=== PATIENT | male | born 2000 | race African-American/Black ===

== ENCOUNTER 2023-04-11 14:49 | Emergency (ER) | payer OTHER, SELFPAY ==
[2023-04-11 15:01] VITALS: BP 128/75; PULSE 77; RESP 18; TEMP 36.8; O2SAT 100; BMI 22.4
--- NOTE | 2023-04-11 15:06 | DI.RAD.S_ITS ---
PROCEDURE: XR HAND RT MIN 3V INDICATIONS: injury TECHNIQUE: 3 views of the hand(s) acquired. COMPARISON: None. FINDINGS: Bones: Transversely oriented fracture of the distal aspect of the proximal phalanx of the 3rd digit.. Carpal bones are normally aligned. No suspicious bony lesions. Soft tissues: No suspicious soft tissue calcifications. IMPRESSION: 3rd digit fracture. Dictated by: Kate Soria M.D. on 04/11/2023 at 15:45 Approved by: Kate Soria M.D. on 04/11/2023 at 15:46
--- NOTE | 2023-04-11 15:12 | ED_ITS ---
HPI - Extremity Injury (Upper) <Earnest Berger PA-C - Last Filed: 04/11/23 17:21> General Chief Complaint: Extremity Injury, Upper Stated Complaint: upper extremity injury Time Seen by Provider: 04/11/23 15:12 History of Present Illness HPI narrative: 22-year-old male with no reported past medical history presents to the ED status post a finger injury sustained just prior to arrival. Patient states that a 75- 100 lb heavy object fell on his right middle finger at work. Patient endorses full range of motion. Patient endorses mild pain. Patient endorses strength and sensation. Tetanus is up-to-date. Related Data Previous Rx's Medication Instructions Recorded cephalexin 500 mg capsule 500 mg PO QID 5 days #20 caps 04/11/23 Allergies Allergy/AdvReac Type Severity Reaction Status Date / Time No Known Drug Allergies Allergy Verified 04/11/23 16:04 Review of Systems <Earnest Berger PA-C - Last Filed: 04/11/23 17:21> Constitutional Constitutional: Denies chills, Denies fatigue, Denies fever(s), Denies frequent falls, Denies lethargy and Denies weakness Eyes Eyes: Denies change in vision, Denies eye discharge, Denies irritation and Denies loss of vision ENT Ears, Nose, Mouth, and Throat: Denies change in voice, Denies dizziness, Denies neck pain, Denies sore throat and Denies throat swelling Cardiovascular Cardiovascular: Denies chest pain, Denies irregular heart rhythm, Denies lightheadedness, Denies palpitations, Denies dyspnea, Denies dyspnea on exertion and Denies orthopnea Respiratory Respiratory: Denies cough, Denies dyspnea, Denies dyspnea on exertion and Denies wheezing Gastrointestinal Gastrointestinal: Denies abdominal pain, Denies change in bowel habits, Denies diarrhea, Denies nausea and Denies vomiting Musculoskeletal Musculoskeletal: Denies neck pain and Denies numbness Integumentary/Breasts Skin/Breast: Denies pruritus, Denies erythema, Denies rash and Reports wounds Neurologic Neurologic: Denies behavioral changes, Denies confusion, Denies dizziness, Denies frequent falls, Denies loss of vision, Denies numbness and Denies weakness Psychiatric Psychiatric: Denies anxiety, Denies behavioral changes, Denies confusion, Denies depression, Denies homicidal ideation and Denies suicidal ideation Endocrine Endocrine: Denies fatigue, Denies flushing and Denies palpitations Hematologic/Lymphatic Hematologic/Lymphatic: Denies easy bruising Allergic/Immunologic Allergic/Immunologic: Denies urticaria, Denies throat swelling and Denies wheezing Patient History <Earnest Berger PA-C - Last Filed: 04/11/23 17:21> Social History Smoking Status: Former smoker Smoking Status: Former smoker alcohol intake frequency: other Substance Use Type: does not use Exam <Earnest Berger PA-C - Last Filed: 04/11/23 17:21> Narrative Exam Narrative: Const General:?cooperative, healthy appearing and comfortable HENMT Head:?normal to inspection Ears:?hearing grossly normal bilaterally Nose:?external nose normal Face and sinus:?normal facial exam and sinuses nontender Mouth:?oral mucosae normal Throat:?posterior oropharynx normal Eyes General:?appearance normal, both eyes and all related structures Neck Neck:?normal visual inspection and no lymphadenopathy noted Resp Effort & Inspection:?normal respiratory effort Auscultation:?clear to auscultation bilaterally Cardio Rate:?regular rate Rhythm:?regular rhythm Musculoskeletal/Integumentary Small laceration on dorsal aspect of the proximal phalange of the right middle finger. Mild swelling. Bleeding controlled with pressure. Strength and sensation is intact. There is full range of motion. Patient is neurovascularly intact. Neuro General:?patient alert, patient awake and patient oriented x3 Initial Vital Signs Initial Vital Signs: Vital Signs Temperature 98.2 F 04/11/23 15:01 Pulse Rate 77 04/11/23 15:01 Respiratory Rate 18 04/11/23 15:01 Blood Pressure 128/75 04/11/23 15:01 Pulse Oximetry 100 04/11/23 15:01 Oxygen Delivery Method Room Air 04/11/23 15:01 <Nuha Sarabia MD - Last Filed: 04/11/23 18:05> Initial Vital Signs Initial Vital Signs: Vital Signs Temperature 98.2 F 04/11/23 15:01 Pulse Rate 77 04/11/23 15:01 Respiratory Rate 18 04/11/23 15:01 Blood Pressure 128/75 04/11/23 15:01 Pulse Oximetry 100 04/11/23 15:01 Oxygen Delivery Method Room Air 04/11/23 15:01 Procedures <Earnest Berger PA-C - Last Filed: 04/11/23 17:21> Laceration Repair Laceration 1: Site: hand Side (If applicable): right Size (cm): 0.5 Description: linear Local Anesthetic: other anesthetic (None) Pre-repair: wound explored, irrigated extensively, deep structures intact and cleansed with chlorhexadine Skin layer closed with: steri-strips ( and dermabond) Course <Earnest Berger PA-C - Last Filed: 04/11/23 17:21> Orders Ordered: ED Orders 04/11/23 15:06 XR hand RT min 3V Stat Discontinued Medications Cephalexin HCl (Cephalexin 250 Mg Capsule) 500 mg PO NOW ONE Stop: 04/11/23 16:40 Last Admin: 04/11/23 17:02 Dose: 500 mg Documented By: SPF Ibuprofen (Ibuprofen 400 Mg Tablet) 800 mg PO NOW ONE Stop: 04/11/23 15:47 Last Admin: 04/11/23 16:03 Dose: 800 mg Documented By: SPF Vital Signs Vital signs: Vital Signs - 8 hr 04/11/23 15:01 04/11/23 16:45 Temperature 98.2 F Pulse Rate 77 69 Respiratory Rate 18 18 Blood Pressure 128/75 108/66 Pulse Oximetry 100 99 Oxygen Delivery Method Room Air Room Air <Nuha Sarabia MD - Last Filed: 04/11/23 18:05> Orders Ordered: ED Orders 04/11/23 15:06 XR hand RT min 3V Stat Discontinued Medications Cephalexin HCl (Cephalexin 250 Mg Capsule) 500 mg PO NOW ONE Stop: 04/11/23 16:40 Last Admin: 04/11/23 17:02 Dose: 500 mg Documented By: SPF Ibuprofen (Ibuprofen 400 Mg Tablet) 800 mg PO NOW ONE Stop: 04/11/23 15:47 Last Admin: 04/11/23 16:03 Dose: 800 mg Documented By: SPF Vital Signs Vital signs: Vital Signs - 8 hr 04/11/23 15:01 04/11/23 16:45 Temperature 98.2 F Pulse Rate 77 69 Respiratory Rate 18 18 Blood Pressure 128/75 108/66 Pulse Oximetry 100 99 Oxygen Delivery Method Room Air Room Air MDM - Extremity Injury (Upper) <Earnest Berger PA-C - Last Filed: 04/11/23 17:21> [facility] Narrative Medical decision making narrative: 22-year-old male with no reported past medical history presents to the ED status post a finger injury sustained just prior to arrival. Concern for fracture/dislocation versus laceration versus other. Will obtain x-ray. Will reassess. X-ray shows a transversely oriented fracture of the distal aspect of the proximal phalanx of the 3rd digit. Patient's laceration was repaired with Steri-Strips and glue. Middle right finger was splinted with a finger splint, robbi-taped to the ring finger. Antibiotics prescribed. First dose of antibiotics given in the ED. Wound care, signs of infection discussed with patient. Recommend follow-up with ortho. ED return precautions were discussed with patient. Patient verbalized understanding. Medical records reviewed: Yes Discharge Plan Departure Patient Disposition: Home Clinical Impression: Finger fracture Qualifiers: Encounter type: initial encounter Finger: middle finger Fracture type: open Phalanx: proximal Fracture alignment: nondisplaced Laterality: right Qualified Code(s): S62.642B - Nondisplaced fracture of proximal phalanx of right middle finger, initial encounter for open fracture Instructions: DI for Finger Fracture Activity Restrictions/Additional Instructions: You were evaluated in the ED today for a finger injury. Your x-ray shows that there is a fracture of your middle finger on the right hand. The laceration has been repaired with Steri-Strips and glue. Your finger has been splinted to keep it immobile and aid proper healing. Your finger has also been robbi-taped to the ring finger for stability. You will need to keep the splint and robbi taping on for the next 3 weeks. You may take Tylenol and ibuprofen for pain. You are being prescribed antibiotics since you have an open wound with a fracture. Please follow-up with [facility] at [phone]. Return to the ED if you have worsening symptoms, numbness, tingling, weakness, signs of infection such as worsening redness, warmth, pain, swelling, discharge. Prescriptions: New cephalexin 500 mg capsule 500 mg PO QID 5 Days Qty: 20 0RF Referrals: Provider,Nataliya SERRANO [Primary Care Provider] - Stand Alone Forms: Patient Portal/API ED Sign-out <Nhua Sarabia MD - Last Filed: 04/11/23 18:05> Cosign ED Attending Cosignature Attestation: I did not see this patient. I was available all times for consultation.
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
[2023-04-11] MEDS: IBUPROFEN 400 MG TABLET 800 MG PO (16:03)
--- NOTE | 2023-04-11 16:20 | PC.NURSE ---
Pt's hands were scrubbed with antibacterial soap and a clean sponge with antibacterial soap to scrup patients open finger wound.
[2023-04-11 16:45] VITALS: BP 108/66; PULSE 69; RESP 18; O2SAT 99
[2023-04-11] MEDS: cephALEXin 250 MG CAPSULE 500 MG PO (17:02)
== END 2023-04-11 17:13 | disposition home or self-care (01) ==
PROVIDERS: Emergency Provider Student in an Organized Health Care Education/Training Program
DX: S62.642A Nondisplaced fracture of proximal phalanx of right middle finger, initial encounter for closed fracture (principal); W22.8XXA Striking against or struck by other objects, initial encounter
CPT/HCPCS: 73130; 99283